=== PATIENT | female | born 1985 | race Caucasian/White ===

== ENCOUNTER → 2017-07-23 | Outpatient (CLI) | payer MEDICAID, SELFPAY | PROVIDERS: Visit Provider Nurse Practitioner Family | DX: R30.0 Dysuria (principal); R31.9 Hematuria, unspecified | CPT/HCPCS: 76770 ==

== ENCOUNTER 2017-09-09 15:23 | Emergency (ER) | payer MEDICAID, SELFPAY ==
[2017-09-09 16:02] VITALS: BP 136/76; PULSE 76; RESP 20; TEMP 36.2; O2SAT 99; BMI 29.1
[2017-09-09 16:18] LABS: UTC Influenza A Antigen Negative (Negative); UTC Influenza B Antigen Negative (Negative)
--- NOTE | 2017-09-09 17:26 | HMH.EDUTC ---
[facility] [place] Clinical Impression: Influenza-like illness Disposition: Home, Self-Care Condition on Discharge: Good Instructions: DI for Influenza -- Adult Additional Instructions: * Lots of rest * Increase fluids, water, gatorade, powerade, pedialyte if infant/toddler/child * Monitor Temp. Tylenol every 4 hours as needed no more then 5 times a day or 4000mg in 24 hours and/or ibuprofen every 6 hours as needed no more then 3200mg in 24 hours (as long as your primary care doctor has told you that it is ok to take both) for fever/aches/pain. ER if fever no less than 101 despite tylenol and Ibuprofen * OTC cold/flu/sinus medication is ok but pick one. Do not take multiple different ones as they have similar ingredients and you can overdose on cold medication. * You (or your child) are contagious until no fever, aches, chills x 24 hours without medication for symptoms. * Follow up with primary care IMMEDIATELY for new or worsening symptoms, improvement followed by suddenly feeling worse OR no noticeable improvement over the next 48-72 hours. 911 for difficulty breathing Time of Disposition: 17:51 Medical Decision Making Vital Signs: 09/09/17 16:02 Temperature 97.2 F L Temperature Source Temporal Artery Scan Pulse Rate [Brachial] 76 Respiratory Rate 20 Blood Pressure [Right Arm] 136/76 Blood Pressure Mean [Right Arm] 96 Blood Pressure Source [Right Arm] Automatic Cuff Blood Pressure Position [Right Arm] Sitting 02 Sat by Pulse Oximetry 99 Oxygen Delivery Method Room Air - Lab Data Lab results reviewed: Yes: I reviewed the patient's lab results. Lab Results 09/09/17 16:17: Influenza Type A Ag Negative, Influenza Type B Ag Negative - Mil Inquiry Pt receiving controlled substance: No [facility] [place] - General Stated complaint: Fever, Nausea, Congestion Time Seen by Provider: 09/09/17 17:27 Mode of Arrival: Ambulatory Source of Information: Patient Limitations: No Limitations Description of Symptoms (Recalled from Triage Doc. by RN): PT STATES FEVER, CONGESTION AND NAUSEA HEENT Symptoms (Recalled from RN notes): No Resp Symptoms (Recalled from RN notes): No Skin Symptoms (Recalled from RN notes): No MS Symptoms (Recalled from RN notes): No Functional Status (Recalled from RN notes): NA - History of Present Illness Provider Complaint: c/o fever up to 102, aches, chills, headache, cough, nasal congestion starting yesterday. Son with same symptoms x 1 week, neg flu. Tylenol and sinus medications help briefly. - Related Data Allergies Allergy/AdvReac Type Severity Reaction Status Date / Time Sulfa (Sulfonamide Allergy Severe LIPS Unverified 07/20/17 15:01 Antibiotics) SWELLING [SULFA (SULFONAMIDE ANTIBIOTICS)] morphine [MORPHINE] Allergy Intermediate ITCHING Unverified 07/20/17 15:01 sulfamethoxazole Allergy Verified 09/09/17 16:07 [From Bactrim] trimethoprim [From Bactrim] Allergy Verified 09/09/17 16:07 - Worker's Comp Is this a Worker's Comp case?: No [facility] History I have reviewed the patient's past medical history: Yes Medical History: Reports:: Depression Denies:: Diabetes Mellitus Type 1, Diabetes Mellitus Type 2, Hypertension Other Medical History: Reports: Hypothyroidism Other Surgeries: Yes: , Other (tubal , ovarian cyst removed x2, hysterectomy) Amputation: No Fractures: No - *Social History Smoking Status: Current every day smoker Tobacco Type: cigarettes Alcohol Intake: never - Psychiatric History Expresses thoughts of harming self/others: None Suicide Plan Description: No Plan ROS Obtained: Yes Systems reviewed as appropriate & no additional complaints - Constitutional Constitutional: Reports as per HPI, Reports fatigue, Reports poor appetite - Eyes Eyes: Denies itchy eyes, Denies other (eye redness) - ENT Ears, Nose, Mouth, and Throat: Denies difficulty swallowing, Denies ear discharge, Reports otalgia, Reports nasal discharge, Linus
[2017-09-09 17:55] VITALS: BP 144/60; PULSE 65; RESP 16; TEMP 36.4; O2SAT 97
== END 2017-09-09 17:56 | disposition home or self-care (01) ==
PROVIDERS: Emergency Provider Nurse Practitioner Family; Family Provider Family Medicine; PCP Obstetrics & Gynecology
DX: J10.1 Influenza due to other identified influenza virus with other respiratory manifestations (principal); E03.9 Hypothyroidism, unspecified; F17.210 Nicotine dependence, cigarettes, uncomplicated; F32.9 Major depressive disorder, single episode, unspecified; Z88.2 Allergy status to sulfonamides; Z88.6 Allergy status to analgesic agent
CPT/HCPCS: 87804; 99201

== ENCOUNTER → 2017-09-14 16:58 | Outpatient (CLI) | payer MEDICAID, SELFPAY ==
[2017-09-14 17:05] LABS: Microscopic, Urine URINE MICROSCOPIC (MICROSCOPIC)
[2017-09-14 17:29] LABS: Basophils % 0.4 % (0.1-2.0); Eosinophils # 0.2 K/mm3 (0.0-0.4); Eosinophils % 1.9 % (0.1-12.0); Hematocrit 40.5 % (37.0-47.0); Hemoglobin 13.6 g/dL (12.2-16.2); Lymphocytes # 2.8 K/mm3 (0.7-4.5); Lymphocytes % 29.3 K/mm3 (10-50); Mean Corpuscular HGB Conc 33.5 g/dL (31.8-35.4); Mean Corpuscular Hemoglobin 29.3 pg (27.0-31.2); Mean Corpuscular Volume 87.4 fl (81-99); Mean Platelet Volume 7.1 fl (7.4-10.4); Monocytes # 0.4 K/mm3 (0.1-1.0); Monocytes % 4.4 % (1.7-9.3); Neutrophils # 6.2 K/mm3 (1.8-7.8); Platelet Count 285 K/mm3 (142-424); Red Blood Count 4.64 M/mm3 (4.20-5.40); Red Cell Distribution Width 12.4 % (11.5-17.5); White Blood Count 9.7 K/mm3 (4.8-10.8)
[2017-09-14 17:53] LABS: Appearance,Urine CLEAR (Clear); Bilirubin,Urine Negative (Negative); Blood, Urine Negative (Negative); Color,Urine YELLOW (Yellow); Glucose,Urine (UA) Negative (Negative); Ketones,Urine Negative (Negative); Leukocyte Esterase,Urine Negative (Negative); Nitrate,Urine Negative (Negative); Protein,Urine Negative (Negative); Specific Gravity, Urine 1.015 (1.005-1.030); Urobilinogen,Urine 0.2 EU/dl (0.2)
[2017-09-14 18:57] LABS: Alanine Aminotransferase 41 U/L (12-78); Albumin Level 4.3 gm/dL (3.4-5.0); Albumin/Globulin Ratio 1.1 (1.1-1.8); Alkaline Phosphatase 109 U/L (46-116); Anion Gap 12.8 mEq/L (5-15); Aspartate Amino Transferase 29 U/L (15-37); Bilirubin,Total 0.4 mg/dL (0.2-1.0); Blood Urea Nitrogen 8 mg/dL (7-18); Calcium 9.3 mg/dL (8.5-10.1); Carbon Dioxide 31 mmol/L (21.0-32.0); Chloride 101 mmol/L (98-107); Chol/HDL Ratio 7.6 (1-3.5); Cholesterol 251 mg/dL (140-200); Creatinine,Serum 0.68 mg/dL (0.55-1.02); Estimated Glomerular Filt Rate 102 ml/min (>60); GFR (African American) 123 ML/MIN (>60); Glucose 85 mg/dL (74-106); HDL Cholesterol 33 mg/dL (29-89); LDL Cholesterol 178 mg/dL (0-130); Potassium 3.8 mmoL/L (3.5-5.1); Sodium 141 mmol/L (136-145); Thyroid Stimulating Hormone 3.44 uIU/ml (0.358-3.740); Total Protein,Serum 8.3 gm/dL (6.4-8.2); Triglycerides 200 mg/dL (30-200); VLDL Cholesterol 40 mg/dL (0-40)
[2017-09-14 19:07] LABS: Bacteria,Urine 2+ /lpf; RBC,Urine Occasional #/hpf (0-3); WBC,Urine Occasional #/hpf (0-3)
[2017-09-14 19:58] LABS: Urine Pregnancy, HCG Qual. Negative (Negative)
[2017-09-16 07:16] LABS: Hep A Ab, IgM Negative (Negative); Hepatitis B Core Antibody IgM Negative (Negative); Hepatitis B Surface Antigen Negative (Negative)
[2017-09-17 12:07] LABS: HIV Screen 4th Generation wRfx Non Reactive (Non Reactive); Hepatitis C Antibody <0.1 s/co ratio (0.0-0.9)
== END ==
PROVIDERS: PCP Family Medicine; Visit Provider Internal Medicine
DX: F11.20 Opioid dependence, uncomplicated (principal)
CPT/HCPCS: 36415; 80053; 80061; 80074; 81001; 81025; 84443; 85025; 86703; 87086; G0432